=== PATIENT | female | born 1950 | race African-American/Black ===

== ENCOUNTER 2017-10-25 17:57 | Emergency (ER) | payer MEDICARE, OTHER ==
[2017-10-25] MEDS ORDERED: Adenosine 6 MG/2 ML VIAL ONE (18:12)
[2017-10-25] MEDS ORDERED: Metoprolol Tartrate 5 MG/5 ML VIAL ONE (18:39)
[2017-10-25 18:42] LABS: #Basophils 0.1 thou/uL (0.0-0.2); #Eosinphils 0.2 thou/uL (0.0-0.7); #Lymphocytes 2.4 thou/uL (1.20-3.40); %Basophils 0.8 % (0.0-1.0); %Eosinophils 2.2 % (0.0-10.0); %Lymphocytes 22.6 % (21.0-51.0); %Monocytes 8.9 % (0.0-10.0); %Neutrophils 65.6 % (42.0-75.0); Mean Corpuscular HGB CONC 32.3 g/dL (32.0-36.0); Mean Corpuscular Hemoglobin 27.3 pg (27.0-31.0); Mean Corpuscular Volume 84.5 fl (81.0-99.0); Mean Platelet Volume 6.8 fL (7.4-10.4); Platelet Count 363 thou/uL (130-400); RBC Distribution Width 13.5 % (11.5-14.5); Red Blood Cell (RBC) Count 5.51 mill/uL (4.20-5.40); White Blood Cell (WBC) Count 10.6 thou/uL (4.8-10.8)
[2017-10-25 18:46] LABS: Prothrombin Time 13.5 SEC (12.0-14.7)
[2017-10-25 18:57] LABS: ALT (SGPT) 91 U/L (8-55); AST (SGOT) 76 U/L (5-34); Albumin 3.7 g/dL (3.4-4.8); Alkaline Phosphatase 133 U/L (40-150); Anion Gap 16 mmol/L (10-20); BUN (Urea Nitrogen) 16 mg/dL (9.8-20.1); Bilirubin, Total 0.6 mg/dL (0.2-1.2); CK (CPK) 120 U/L (29-168); Calc. Creatinine Clearance 0 mL/min (70-130); Calcium 9.7 mg/dL (7.8-10.44); Carbon Dioxide 25 mmol/L (23-31); Chloride 105 mmol/L (98-107); Estimated GFR-MDRD 62; Glucose 131 mg/dL (80-115); Magnesium 1.8 mg/dL (1.6-2.6); Protein, Total 7.7 g/dL (6.0-8.3); Sodium 142 mmol/L (136-145)
[2017-10-25 18:58] LABS: CKMB 1.2 ng/mL (0-6.6); PTT 29.3 SEC (22.9-36.1)
--- NOTE | 2017-10-25 19:56 | RAD ---
UPRIGHT PORTABLE CHEST ONE VIEW: 10/25/17 HISTORY: 67-year-old female with chest pain as well as lightheadedness and heart palpating. Monitor leads overlie the chest. Abnormal somewhat nodular opacity in the right upper lobe. Evidence for right upper lobe pneumonia or right upper lobe lung mass. there is minimal right hemidiaphragm el evation. Heart size is within normal limits. The left lung is clear. IMPRESSION: Abnormal mass opacity in the right upper lobe which certainly could represent confluent right upper l obe pneumonia. A large right upper lobe neoplastic mass is a consideration as well. If the patient nguyen s symptoms of pneumonia, then I would recommend treatment for pneumonia and obtain short term followu p plain films over the next several weeks and if this mass does not resolve at that time, [facility] POS: [email or web address]
== END 2017-10-25 19:25 | disposition home or self-care (01) ==
LOC: BURERS 17:57
DX: I47.1 Supraventricular tachycardia (principal); I10 Essential (primary) hypertension; Z79.899 Other long term (current) drug therapy
CPT/HCPCS: 71010; 80053; 82553; 83735; 84484; 85025; 85610; 85730; 93005; 96374; 96375; J0153

== ENCOUNTER 2018-03-01 14:58 | Emergency (ER) | payer MEDICARE, MEDICAID ==
[2018-03-01] MEDS ORDERED: Fentanyl 100 MCG/2 ML VIAL ONE (15:43)
[2018-03-01] MEDS ORDERED: Midazolam HCl 2 mg/2 ml Vial ONE (15:46)
[2018-03-01 16:20] LABS: INR-International Normal Ratio 1.3; Prothrombin Time 16.1 SEC (12.0-14.7)
[2018-03-01 16:21] LABS: PTT 32.2 SEC (22.9-36.1)
[2018-03-01 16:27] LABS: #Basophils 0.1 thou/uL (0.0-0.2); #Lymphocytes 0.7 thou/uL (1.20-3.40); #Monocytes 1.1 thou/uL (0.11-0.59); #Neutrophils 17.4 thou/uL (1.40-6.50); %Basophils 0.4 % (0.0-1.0); %Eosinophils 0.1 % (0.0-10.0); %Lymphocytes 3.5 % (21.0-51.0); %Monocytes 5.6 % (0.0-10.0); %Neutrophils 90.4 % (42.0-75.0); Basophilic Stippling MODERATE = 3-5 cells (100X) (None Seen); Crenated RBC MARKED = >16 cells (100X) (None Seen); Hemoglobin 11.1 g/dL (12.0-16.0); Hypochromia SLIGHT = 6-15 cells (100X) (0-5/hpf); MDiff Complete? YES; Macrocytosis MODERATE=16-30 cells (100X) (0-5/hpf); Mean Corpuscular HGB CONC 30.5 g/dL (32.0-36.0); Mean Corpuscular Hemoglobin 26.7 pg (27.0-31.0); Mean Corpuscular Volume 87.4 fl (81.0-99.0); Mean Platelet Volume 7.2 fL (7.4-10.4); Nucleated RBC 6 % (0); Platelet Count 467 thou/uL (130-400); Polychromasia SLIGHT = 2-3 cells (100X) (0-2/hpf); RBC Distribution Width 23.1 % (11.5-14.5); Red Blood Cell (RBC) Count 4.15 mill/uL (4.20-5.40); Spherocytes SLIGHT = 1-5 cells (100X) (None Seen); Stomatocytes SLIGHT = 2-5 cells (100X) (0-1/hpf); Target Cells MODERATE= 6-15 cells (100X) (0-1/hpf); White Blood Cell (WBC) Count 19.2 thou/uL (4.8-10.8)
[2018-03-01 16:32] LABS: Troponin I 0.049 ng/mL (< 0.028)
[2018-03-01 16:39] LABS: CKMB 7.5 ng/mL (0-6.6); Critical Call CKMBM 0
[2018-03-01 17:05] LABS: Albumin 2.9 g/dL (3.4-4.8); Bilirubin, Total 5.3 mg/dL (0.2-1.2); Calcium 9.2 mg/dL (7.8-10.44); Globulin 4.7 g/dL (2.4-3.5); Potassium 7.8 mmol/L (3.5-5.1); Protein, Total 7.6 g/dL (6.0-8.3)
--- NOTE | 2018-03-01 18:26 | RAD ---
PORTABLE CHEST ONE VIEW 03/01/18 at 3:37 p.m. HISTORY: Respiratory failure, endotracheal tube placement. Comparison made with the exam of 10/25/17. FINDINGS/IMPRESSION: There has been interval placement of an endotracheal tube with tip just at the level of the clavicula r heads. A nasogastric tube can be traced into the stomach. There is opacification of majority of the right lung. Surgical clips are seen in the left lower chest. The left lung appears clear. The heart size is normal. POS: SUSANNE
== END 2018-03-01 17:06 | disposition short-term general hospital (02) ==
LOC: BURERS 14:58
DX: R06.02 Shortness of breath (principal); E66.9 Obesity, unspecified; C78.00 Secondary malignant neoplasm of unspecified lung; I10 Essential (primary) hypertension
CPT/HCPCS: 31500; 51702; 71045; 80053; 82553; 84484; 85025; 85610; 85730; 94760; 96374; 96375; J2250; J3010